=== PATIENT | male | born 1960 | race Caucasian/White ===

== ENCOUNTER 2023-04-30 11:56 | Emergency (ER) | payer MEDICARE ==
[~2023-04-30] VITALS: Ht 167.6 cm; Wt 54.4 kg
[2023-04-30 12:08] VITALS: BP 114/71; TEMP 98
[2023-04-30] MEDS ORDERED: ZOCOR 80MG80 MG PO (12:15)
[2023-04-30] MEDS ORDERED: ALDACTONE 25MG25 M1 PO (12:16)
[2023-04-30] MEDS ORDERED: PRINIVIL20 MG PO (12:16)
[2023-04-30] MEDS ORDERED: ASPIRIN 81M81 MG/TA2 PO (12:17)
[2023-04-30] MEDS ORDERED: PROTONIX 40MG T40 MG PO (12:17)
[2023-04-30] MEDS ORDERED: TOPROL XL 25MG25 MG PO (12:17)
[2023-04-30] MEDS ORDERED: ATARAX 25MG25 MG/TAB PO (13:07)
[2023-04-30] MEDS ORDERED: TRIAMCINOLONE A15 G2 TP (13:08)
[2023-04-30 13:16] VITALS: PULSE 70
== END 2023-04-30 13:16 | disposition home or self-care (01) ==
LOC: COL.ER 11:56
DX: L25.9 Unspecified contact dermatitis, unspecified cause (principal)